=== PATIENT | female | born 1970 ===

== ENCOUNTER 2021-05-13 05:32 | Day surgery (SDC) | payer OTHER ==
[~2021-05-13 05:32] MED LIST: ATACAND16 MG PO; HYDROCHLOROTH12.5 MG PO
== END 2021-05-13 16:35 | disposition home or self-care (01) ==
LOC: CIR.AMB 05:32
PROVIDERS: ATTEND Obstetrics & Gynecology
DX: N84.0 Polyp of corpus uteri (principal); Z20.822 Contact with and (suspected) exposure to COVID-19

== ENCOUNTER 2021-11-13 14:02 | Outpatient (CLI) | payer OTHER | END 2021-11-13 14:13 | disposition home or self-care (01) | LOC: SONOGRAMA 14:02 | DX: M65.272 Calcific tendinitis, left ankle and foot (principal) ==